=== PATIENT | male | born 1945 | race Caucasian/White ===

== ENCOUNTER 2017-10-31 21:18 | Inpatient (IN) | payer MEDICARE, MEDICAID ==
[~2017-10-31] VITALS: Ht 175.3 cm; Wt 97.1 kg
[2017-10-31 21:10] VITALS: BP 164/75
[2017-10-31] MEDS ORDERED: BLOO-668 IN (23:32)
[2017-10-31] MEDS ORDERED: HYDR-3974 PO (23:32)
[2017-10-31] MEDS ORDERED: ISOS30TA6 PO (23:32)
[2017-10-31] MEDS ORDERED: ASPI-605 PO (23:32)
[2017-10-31] MEDS ORDERED: CHOL200010 PO (23:32)
[2017-10-31] MEDS ORDERED: LEVO100T10 PO (23:32)
[2017-10-31] MEDS ORDERED: INSU100V28 (23:32)
[2017-10-31] MEDS ORDERED: ONDA4TAB11 IVP (23:32)
[2017-10-31] MEDS ORDERED: PIPE3.379 IV (23:32)
[2017-10-31] MEDS ORDERED: ACET-2154 PO (23:32)
[2017-10-31] MEDS ORDERED: ATOR40TA PO (23:32)
[2017-10-31] MEDS ORDERED: NEOM28.37 TP (23:32)
[2017-10-31] MEDS ORDERED: METO50TA16 PO (23:32)
[2017-10-31] MEDS ORDERED: ENOX40DI9 SQ (23:32)
[2017-10-31] MEDS ORDERED: MAGN400O6 PO (23:32)
[2017-10-31] MEDS ORDERED: OXCA300T PO (23:32)
[2017-10-31] MEDS ORDERED: ZOLP10TA6 PO (23:32)
[2017-10-31] MEDS ORDERED: NS 0.9% IV (23:32)
[2017-10-31] MEDS ORDERED: VALS160T2 PO (23:32)
[2017-10-31] MEDS ORDERED: QUET400T PO (23:32)
[2017-10-31] MEDS ORDERED: MAG30ORA2 PO (23:32)
[2017-11-01] MEDS ORDERED: Z GUARD REMEDY PASTE 57 GM TUBE TOP PRN
[2017-11-01] MEDS ORDERED: ACETAMINOPHEN 325 MG TABLET PO PRN (00:15)
[2017-11-01] MEDS ORDERED: HYDROCODONE/APAP 5-325MG TABLET PO PRN (00:15)
[2017-11-01] MEDS ORDERED: MAGNESIUM HYDROXIDE 30 ML LIQUID UDC PO SCH (00:15)
[2017-11-01] MEDS ORDERED: MAG HYDROX/AL HYDROX/SIMETH 30 ML LIQUID UDC PO PRN (00:45)
[2017-11-01] MEDS ORDERED: ZOLPIDEM 5 MG TABLET PO PRN (00:45)
[2017-11-01] MEDS ORDERED: PIPERACILLIN SODIUM/TAZO 3.375 GM VIAL ONE (05:21)
[2017-11-01] MEDS ORDERED: PIPERACILLIN/TAZO/D5W 3.375 GM FROZEN IV SCH (06:00)
[2017-11-01] MEDS: PIPERACILLIN/TAZOBACTAM/D5W 3.375 G in PREMIXED 1 EACH IV SCH ×3 (07:10→22:09)
[2017-11-01] MEDS ORDERED: LEVOTHYROXINE SODIUM 100 MCG TABLET PO SCH (07:30)
[2017-11-01] MEDS ORDERED: INSULIN REGULAR, HUMAN 300 UNIT/3 ML VIAL SQ SCH (07:30)
[2017-11-01] MEDS ORDERED: BLOOD SUGAR DIAGNOSTIC 1 EACH STRIP VI SCH (07:30)
[2017-11-01 08:00] VITALS: BP 166/77
[2017-11-01] MEDS ORDERED: DEXTROSE 50% 50 ML DISP.SYRIN IV PRN (08:00)
[2017-11-01] MEDS: ISOSORBIDE MONONITRATE 30 MG TAB.SR.24H PO SCH (08:33)
[2017-11-01] MEDS: OXCARBAZEPINE 300 MG TABLET PO SCH ×2 (08:33→16:35)
[2017-11-01] MEDS: CHOLECALCIFEROL 1,000 UNIT TABLET PO SCH (08:33)
[2017-11-01] MEDS: VALSARTAN 160 MG TABLET PO SCH (08:33)
[2017-11-01] MEDS: ENOXAPARIN SODIUM 40 MG/0.4 ML DISP.SYRIN SQ SCH (08:34)
[2017-11-01] MEDS: ASPIRIN EC 81 MG TABLET.DR PO SCH (08:34)
[2017-11-01] MEDS: INSULIN REGULAR, HUMAN 300 UNIT/3 ML VIAL SQ PRN ×4 (08:39→20:29)
[2017-11-01] MEDS: NEOMY/BACITRAC/POLYMI OINT 28.35 GM TUBE TP SCH (08:43)
[2017-11-01] MEDS ORDERED: NEOMY/BACITRAC/POLYMI OINT 28.35 GM TUBE TP SCH (09:00)
[2017-11-01] MEDS: BLOOD SUGAR DIAGNOSTIC 1 EACH STRIP VI SCH ×3 (11:35→20:21)
[2017-11-01] MEDS: QUETIAPINE FUMARATE 200 MG TABLET PO SCH (20:14)
[2017-11-01] MEDS: ATORVASTATIN 40 MG TABLET PO SCH (20:14)
[2017-11-01] MEDS ORDERED: QUETIAPINE FUMARATE PO SCH (21:00)
[2017-11-01 22:30] VITALS: BP 125/69
[2017-11-02] MEDS: PIPERACILLIN/TAZOBACTAM/D5W 3.375 G in PREMIXED 1 EACH IV SCH (05:10)
[2017-11-02] MEDS: LEVOTHYROXINE SODIUM 100 MCG TABLET PO SCH (06:04)
[2017-11-02] MEDS: BLOOD SUGAR DIAGNOSTIC 1 EACH STRIP VI SCH ×4 (06:37→20:32)
[2017-11-02] MEDS: NEOMY/BACITRAC/POLYMI OINT 28.35 GM TUBE TP SCH (08:12)
[2017-11-02] MEDS: CHOLECALCIFEROL 1,000 UNIT TABLET PO SCH (08:12)
[2017-11-02] MEDS: OXCARBAZEPINE 300 MG TABLET PO SCH ×2 (08:13→17:10)
[2017-11-02] MEDS: ASPIRIN EC 81 MG TABLET.DR PO SCH (08:14)
[2017-11-02] MEDS: VALSARTAN 160 MG TABLET PO SCH (08:14)
[2017-11-02] MEDS: ISOSORBIDE MONONITRATE 30 MG TAB.SR.24H PO SCH (08:14)
[2017-11-02] MEDS: INSULIN REGULAR, HUMAN 300 UNIT/3 ML VIAL SQ PRN ×4 (08:19→20:31)
[2017-11-02] MEDS: ENOXAPARIN SODIUM 40 MG/0.4 ML DISP.SYRIN SQ SCH (08:20)
[2017-11-02 08:27] LABS: BASOPHILS % (AUTO) 0.5 % (0.0-2.0); EOSINOPHILS # (AUTO) 0.1 K/uL (0.0-0.7); EOSINOPHILS % (AUTO) 1.7 % (0.0-7.0); HEMOGLOBIN 11.2 g/dL (12.5-16.3); LYMPHOCYTES # (AUTO) 1.2 K/uL (20.0-40.0); LYMPHOCYTES % (AUTO) 19.3 % (20.5-51.5); MEAN CORPUSCULAR HEMOGLOBIN 29.2 uug (23.8-33.4); MEAN CORPUSCULAR HGB CONC 35 g/dL (32.5-36.3); MEAN CORPUSCULAR VOLUME 83.2 fL (73.0-96.2); MONOCYTES # (AUTO) 0.6 K/uL (2.0-10.0); MONOCYTES % (AUTO) 9.5 % (0.0-11.0); NEUTROPHILS # (AUTO) 4.2 K/uL (1.8-8.9); PLATELET COUNT (AUTO) 146 K/uL (152-348); RED BLOOD CELL COUNT(AUTO) 3.85 MIL/uL (4.06-5.63); WHITE BLOOD COUNT (AUTO) 6.1 K/uL (3.6-10.2)
[2017-11-02 08:40] VITALS: BP 119/59
[2017-11-02 08:55] LABS: THYROID STIMULATING HORMONE 2.707 mIU/mL (0.358-3.740)
[2017-11-02 09:13] LABS: ALANINE AMINOTRANSFERASE 125 U/L (16-63); ALKALINE PHOSPHATASE 104 U/L (50-136); ASPARTATE AMINOTRANSFERASE 77 U/L (15-37); BILIRUBIN,TOTAL 0.6 mg/dL (0.2-1.0); CARBON DIOXIDE 27 mmol/L (21-32); CHLORIDE 104 mmol/L (98-107); CHOLESTEROL 126 mg/dL (<200); CREATININE 0.8 mg/dL (0.6-1.3); GLUCOSE 188 mg/dL (74-106); HDL CHOLESTEROL 32 mg/dL (40-60); MAGNESIUM 1.8 mg/dL (1.8-2.4); PHOSPHOROUS 3.4 mg/dL (2.5-4.9); POTASSIUM 3.6 mmol/L (3.5-5.1); TOTAL PROTEIN, SERUM 6.2 g/dL (6.4-8.2); TRIGLYCERIDES 84 MG/DL (30-150); UREA NITROGEN, BLOOD 9 mg/dL (7-18); URIC ACID 3.1 mg/dL (3.5-7.2)
[2017-11-02 10:23] LABS: BAND % (MANUAL) 1 % (0-10); LYMPHOCYTES % (MANUAL) 16 % (20-40); METAMYELOCYTES % 6 % (0-1); MONOCYTES % (MANUAL) 10 % (2-10); MYELOCYTES % 2 % (0-0); NEUTROPHILS % (MANUAL) 65 % (42-75)
[2017-11-02 20:26] VITALS: BP 152/67
[2017-11-02] MEDS: ATORVASTATIN 40 MG TABLET PO SCH (20:32)
[2017-11-02] MEDS: QUETIAPINE FUMARATE 200 MG TABLET PO SCH (21:47)
[2017-11-03] MEDS: LEVOTHYROXINE SODIUM 100 MCG TABLET PO SCH (06:13)
[2017-11-03] MEDS: BLOOD SUGAR DIAGNOSTIC 1 EACH STRIP VI SCH ×4 (06:31→21:45)
[2017-11-03] MEDS: INSULIN REGULAR, HUMAN 300 UNIT/3 ML VIAL SQ PRN ×4 (07:55→21:55)
[2017-11-03] MEDS: ISOSORBIDE MONONITRATE 30 MG TAB.SR.24H PO SCH (09:07)
[2017-11-03] MEDS: ASPIRIN EC 81 MG TABLET.DR PO SCH (09:07)
[2017-11-03] MEDS: OXCARBAZEPINE 300 MG TABLET PO SCH ×2 (09:07→16:37)
[2017-11-03] MEDS: VALSARTAN 160 MG TABLET PO SCH (09:07)
[2017-11-03] MEDS: CHOLECALCIFEROL 1,000 UNIT TABLET PO SCH (09:07)
[2017-11-03] MEDS: NEOMY/BACITRAC/POLYMI OINT 28.35 GM TUBE TP SCH (09:08)
[2017-11-03] MEDS: ENOXAPARIN SODIUM 40 MG/0.4 ML DISP.SYRIN SQ SCH (09:10)
[2017-11-03 09:43] VITALS: BP 131/50
[2017-11-03 18:26] VITALS: BP_SYST 122; BP_SYST 126; BP_SYST 140; BP_DIAS 60; BP_DIAS 62; BP_DIAS 68
[2017-11-03 19:48] VITALS: BP 139/70
[2017-11-03] MEDS: ATORVASTATIN 40 MG TABLET PO SCH (21:45)
[2017-11-03] MEDS: QUETIAPINE FUMARATE 200 MG TABLET PO SCH (21:45)
[2017-11-04] MEDS: LEVOTHYROXINE SODIUM 100 MCG TABLET PO SCH (06:32)
[2017-11-04] MEDS: BLOOD SUGAR DIAGNOSTIC 1 EACH STRIP VI SCH ×4 (06:39→20:37)
[2017-11-04] MEDS: INSULIN REGULAR, HUMAN 300 UNIT/3 ML VIAL SQ PRN ×4 (08:01→20:41)
[2017-11-04] MEDS: OXCARBAZEPINE 300 MG TABLET PO SCH ×2 (08:02→17:13)
[2017-11-04] MEDS: ENOXAPARIN SODIUM 40 MG/0.4 ML DISP.SYRIN SQ SCH (08:02)
[2017-11-04] MEDS: ASPIRIN EC 81 MG TABLET.DR PO SCH (08:02)
[2017-11-04] MEDS: CHOLECALCIFEROL 1,000 UNIT TABLET PO SCH (08:02)
[2017-11-04] MEDS: ISOSORBIDE MONONITRATE 30 MG TAB.SR.24H PO SCH (08:03)
[2017-11-04] MEDS: NEOMY/BACITRAC/POLYMI OINT 28.35 GM TUBE TP SCH (08:03)
[2017-11-04] MEDS: VALSARTAN 160 MG TABLET PO SCH (08:04)
[2017-11-04 10:50] VITALS: BP 129/66
[2017-11-04 20:20] VITALS: BP 142/73
[2017-11-04] MEDS: ATORVASTATIN 40 MG TABLET PO SCH (20:33)
[2017-11-04] MEDS: QUETIAPINE FUMARATE 200 MG TABLET PO SCH (21:57)
[2017-11-05] MEDS: LEVOTHYROXINE SODIUM 100 MCG TABLET PO SCH (06:37)
[2017-11-05] MEDS: BLOOD SUGAR DIAGNOSTIC 1 EACH STRIP VI SCH ×4 (06:41→20:45)
[2017-11-05 08:26] VITALS: BP 130/66
[2017-11-05] MEDS: OXCARBAZEPINE 300 MG TABLET PO SCH ×2 (09:23→17:20)
[2017-11-05] MEDS: ASPIRIN EC 81 MG TABLET.DR PO SCH (09:23)
[2017-11-05] MEDS: CHOLECALCIFEROL 1,000 UNIT TABLET PO SCH (09:23)
[2017-11-05] MEDS: VALSARTAN 160 MG TABLET PO SCH (09:23)
[2017-11-05] MEDS: ISOSORBIDE MONONITRATE 30 MG TAB.SR.24H PO SCH (09:24)
[2017-11-05] MEDS: ENOXAPARIN SODIUM 40 MG/0.4 ML DISP.SYRIN SQ SCH (09:25)
[2017-11-05] MEDS: INSULIN REGULAR, HUMAN 300 UNIT/3 ML VIAL SQ PRN ×4 (09:26→20:49)
[2017-11-05] MEDS: NEOMY/BACITRAC/POLYMI OINT 28.35 GM TUBE TP SCH (09:56)
[2017-11-05 19:30] VITALS: BP 142/68
[2017-11-05] MEDS: ATORVASTATIN 40 MG TABLET PO SCH (20:41)
[2017-11-05] MEDS: QUETIAPINE FUMARATE 200 MG TABLET PO SCH (20:42)
[2017-11-06] MEDS: LEVOTHYROXINE SODIUM 100 MCG TABLET PO SCH (06:26)
[2017-11-06] MEDS: BLOOD SUGAR DIAGNOSTIC 1 EACH STRIP VI SCH ×4 (06:29→20:21)
[2017-11-06 08:28] VITALS: BP 120/67
[2017-11-06] MEDS: ENOXAPARIN SODIUM 40 MG/0.4 ML DISP.SYRIN SQ SCH (09:11)
[2017-11-06] MEDS: CHOLECALCIFEROL 1,000 UNIT TABLET PO SCH (09:14)
[2017-11-06] MEDS: VALSARTAN 160 MG TABLET PO SCH (09:14)
[2017-11-06] MEDS: OXCARBAZEPINE 300 MG TABLET PO SCH ×2 (09:14→16:30)
[2017-11-06] MEDS: ASPIRIN EC 81 MG TABLET.DR PO SCH (09:14)
[2017-11-06] MEDS: ISOSORBIDE MONONITRATE 30 MG TAB.SR.24H PO SCH (09:14)
[2017-11-06] MEDS: NEOMY/BACITRAC/POLYMI OINT 28.35 GM TUBE TP SCH (09:15)
[2017-11-06] MEDS: INSULIN REGULAR, HUMAN 300 UNIT/3 ML VIAL SQ PRN ×3 (12:17→20:27)
[2017-11-06] MEDS: MAGNESIUM HYDROXIDE 30 ML LIQUID UDC PO PRN (12:22)
[2017-11-06] MEDS: METFORMIN HCL 500 MG TABLET PO SCH (19:01)
[2017-11-06 19:30] VITALS: BP 143/68
[2017-11-06] MEDS: QUETIAPINE FUMARATE 200 MG TABLET PO SCH (20:21)
[2017-11-06] MEDS: ATORVASTATIN 10 MG TABLET PO SCH (20:21)
[2017-11-07] MEDS: LEVOTHYROXINE SODIUM 100 MCG TABLET PO SCH (06:23)
[2017-11-07] MEDS: BISACODYL 5 MG TABLET.DR PO PRN (06:23)
[2017-11-07] MEDS: BLOOD SUGAR DIAGNOSTIC 1 EACH STRIP VI SCH ×4 (06:31→20:40)
[2017-11-07 07:33] LABS: BASOPHILS % (AUTO) 0.3 % (0.0-2.0); EOSINOPHILS # (AUTO) 0.1 K/uL (0.0-0.7); EOSINOPHILS % (AUTO) 1.2 % (0.0-7.0); HEMATOCRIT 34.9 % (36.7-47.1); HEMOGLOBIN 11.9 g/dL (12.5-16.3); LYMPHOCYTES # (AUTO) 1.4 K/uL (20.0-40.0); LYMPHOCYTES % (AUTO) 20.4 % (20.5-51.5); MEAN CORPUSCULAR HEMOGLOBIN 28.8 uug (23.8-33.4); MEAN CORPUSCULAR HGB CONC 34 g/dL (32.5-36.3); MEAN CORPUSCULAR VOLUME 84.7 fL (73.0-96.2); MONOCYTES # (AUTO) 0.8 K/uL (2.0-10.0); MONOCYTES % (AUTO) 11.6 % (0.0-11.0); NEUTROPHILS # (AUTO) 4.5 K/uL (1.8-8.9); NEUTROPHILS % (AUTO) 66.5 % (38.5-71.5); PLATELET COUNT (AUTO) 147 K/uL (152-348); RED BLOOD CELL COUNT(AUTO) 4.12 MIL/uL (4.06-5.63); WHITE BLOOD COUNT (AUTO) 6.7 K/uL (3.6-10.2)
[2017-11-07 07:58] VITALS: BP 106/60
[2017-11-07 08:02] LABS: ALANINE AMINOTRANSFERASE 95 U/L (16-63); ALKALINE PHOSPHATASE 126 U/L (50-136); ASPARTATE AMINOTRANSFERASE 30 U/L (15-37); BILIRUBIN,TOTAL 0.4 mg/dL (0.2-1.0); CARBON DIOXIDE 27 mmol/L (21-32); CHLORIDE 101 mmol/L (98-107); CREATININE 0.9 mg/dL (0.6-1.3); GLUCOSE 172 mg/dL (74-106); MAGNESIUM 1.7 mg/dL (1.8-2.4); PHOSPHOROUS 3.7 mg/dL (2.5-4.9); POTASSIUM 4.9 mmol/L (3.5-5.1); TOTAL PROTEIN, SERUM 6.5 g/dL (6.4-8.2); UREA NITROGEN, BLOOD 17 mg/dL (7-18)
[2017-11-07] MEDS: ENOXAPARIN SODIUM 40 MG/0.4 ML DISP.SYRIN SQ SCH (08:17)
[2017-11-07] MEDS: INSULIN REGULAR, HUMAN 300 UNIT/3 ML VIAL SQ PRN ×4 (08:19→20:42)
[2017-11-07] MEDS: CHOLECALCIFEROL 1,000 UNIT TABLET PO SCH (08:21)
[2017-11-07] MEDS: ASPIRIN EC 81 MG TABLET.DR PO SCH (08:21)
[2017-11-07] MEDS: METFORMIN HCL 500 MG TABLET PO SCH ×2 (08:21→17:46)
[2017-11-07] MEDS: FUROSEMIDE 20 MG TABLET PO SCH (08:21)
[2017-11-07] MEDS: OXCARBAZEPINE 300 MG TABLET PO SCH ×2 (08:21→17:46)
[2017-11-07] MEDS: VALSARTAN 160 MG TABLET PO SCH (08:22)
[2017-11-07] MEDS: NEOMY/BACITRAC/POLYMI OINT 28.35 GM TUBE TP SCH (08:22)
[2017-11-07] MEDS: ISOSORBIDE MONONITRATE 30 MG TAB.SR.24H PO SCH (08:22)
[2017-11-07] MEDS ORDERED: MAGNESIUM OXIDE 400 MG TABLET PO ONE (15:15)
[2017-11-07] MEDS: MAGNESIUM HYDROXIDE 30 ML LIQUID UDC PO PRN (17:46)
[2017-11-07] MEDS: ATORVASTATIN 10 MG TABLET PO SCH (20:29)
[2017-11-07] MEDS: METOPROLOL TARTRATE 25 MG TABLET PO SCH (20:30)
[2017-11-07] MEDS: QUETIAPINE FUMARATE 200 MG TABLET PO SCH (20:35)
[2017-11-07 21:08] VITALS: BP 130/73
[2017-11-08] MEDS: LEVOTHYROXINE SODIUM 100 MCG TABLET PO SCH (06:13)
[2017-11-08] MEDS: BLOOD SUGAR DIAGNOSTIC 1 EACH STRIP VI SCH ×4 (06:32→20:20)
[2017-11-08] MEDS: CHOLECALCIFEROL 1,000 UNIT TABLET PO SCH (07:55)
[2017-11-08] MEDS: METFORMIN HCL 500 MG TABLET PO SCH ×2 (07:55→16:37)
[2017-11-08] MEDS: VALSARTAN 160 MG TABLET PO SCH (07:55)
[2017-11-08] MEDS: ASPIRIN EC 81 MG TABLET.DR PO SCH (07:55)
[2017-11-08] MEDS: OXCARBAZEPINE 300 MG TABLET PO SCH ×2 (07:55→16:37)
[2017-11-08] MEDS: ISOSORBIDE MONONITRATE 30 MG TAB.SR.24H PO SCH (07:55)
[2017-11-08] MEDS: METOPROLOL TARTRATE 25 MG TABLET PO SCH ×2 (07:56→20:17)
[2017-11-08] MEDS: INSULIN REGULAR, HUMAN 300 UNIT/3 ML VIAL SQ PRN ×4 (07:58→20:24)
[2017-11-08 08:17] VITALS: BP 133/72
[2017-11-08] MEDS: NEOMY/BACITRAC/POLYMI OINT 28.35 GM TUBE TP SCH (08:55)
[2017-11-08] MEDS: BISACODYL 5 MG TABLET.DR PO PRN (16:37)
[2017-11-08 20:10] VITALS: BP 144/63
[2017-11-08] MEDS: DOCUSATE SODIUM 100 MG CAPSULE PO SCH (20:15)
[2017-11-08] MEDS: ATORVASTATIN 10 MG TABLET PO SCH (20:16)
[2017-11-08] MEDS: QUETIAPINE FUMARATE 200 MG TABLET PO SCH (21:56)
[2017-11-09] MEDS: LEVOTHYROXINE SODIUM 100 MCG TABLET PO SCH (06:02)
[2017-11-09] MEDS: BLOOD SUGAR DIAGNOSTIC 1 EACH STRIP VI SCH ×4 (06:03→20:26)
[2017-11-09 07:30] VITALS: BP 114/49
[2017-11-09] MEDS: DOCUSATE SODIUM 100 MG CAPSULE PO SCH ×2 (08:23→20:28)
[2017-11-09] MEDS: METOPROLOL TARTRATE 25 MG TABLET PO SCH ×2 (08:25→20:28)
[2017-11-09] MEDS: ISOSORBIDE MONONITRATE 30 MG TAB.SR.24H PO SCH (08:25)
[2017-11-09] MEDS: ASPIRIN EC 81 MG TABLET.DR PO SCH (08:25)
[2017-11-09] MEDS: OXCARBAZEPINE 300 MG TABLET PO SCH ×2 (08:26→16:35)
[2017-11-09] MEDS: CHOLECALCIFEROL 1,000 UNIT TABLET PO SCH (08:26)
[2017-11-09] MEDS: FUROSEMIDE 20 MG TABLET PO SCH (08:26)
[2017-11-09] MEDS: NEOMY/BACITRAC/POLYMI OINT 28.35 GM TUBE TP SCH (08:26)
[2017-11-09] MEDS: METFORMIN HCL 500 MG TABLET PO SCH ×2 (08:27→16:35)
[2017-11-09] MEDS: VALSARTAN 160 MG TABLET PO SCH (08:29)
[2017-11-09] MEDS: INSULIN REGULAR, HUMAN 300 UNIT/3 ML VIAL SQ PRN ×2 (11:36→20:30)
[2017-11-09 14:03] LABS: *OCCULT BLOOD STOOL NEGATIVE (NEGATIVE)
[2017-11-09] MEDS: QUETIAPINE FUMARATE 200 MG TABLET PO SCH (20:28)
[2017-11-09] MEDS: ATORVASTATIN 10 MG TABLET PO SCH (20:28)
[2017-11-09 20:30] VITALS: BP 140/67
[2017-11-10] MEDS: LEVOTHYROXINE SODIUM 100 MCG TABLET PO SCH (06:37)
[2017-11-10] MEDS: BLOOD SUGAR DIAGNOSTIC 1 EACH STRIP VI SCH ×4 (06:39→20:12)
[2017-11-10 07:30] VITALS: BP 123/76
[2017-11-10] MEDS: INSULIN REGULAR, HUMAN 300 UNIT/3 ML VIAL SQ PRN ×5 (08:00→20:09)
[2017-11-10] MEDS: CHOLECALCIFEROL 1,000 UNIT TABLET PO SCH (08:33)
[2017-11-10] MEDS: OXCARBAZEPINE 300 MG TABLET PO SCH ×2 (08:35→17:10)
[2017-11-10] MEDS: METFORMIN HCL 500 MG TABLET PO SCH ×2 (08:35→17:10)
[2017-11-10] MEDS: METOPROLOL TARTRATE 25 MG TABLET PO SCH ×2 (08:35→20:11)
[2017-11-10] MEDS: DOCUSATE SODIUM 100 MG CAPSULE PO SCH ×2 (08:35→20:11)
[2017-11-10] MEDS: ASPIRIN EC 81 MG TABLET.DR PO SCH (08:36)
[2017-11-10] MEDS: ISOSORBIDE MONONITRATE 30 MG TAB.SR.24H PO SCH (08:36)
[2017-11-10] MEDS: VALSARTAN 160 MG TABLET PO SCH (08:36)
[2017-11-10] MEDS: NEOMY/BACITRAC/POLYMI OINT 28.35 GM TUBE TP SCH (09:52)
[2017-11-10 19:30] VITALS: BP 138/69
[2017-11-10] MEDS: ATORVASTATIN 10 MG TABLET PO SCH (20:11)
[2017-11-10] MEDS: QUETIAPINE FUMARATE 200 MG TABLET PO SCH (20:11)
[2017-11-11] MEDS: LEVOTHYROXINE SODIUM 100 MCG TABLET PO SCH (06:41)
[2017-11-11] MEDS: BLOOD SUGAR DIAGNOSTIC 1 EACH STRIP VI SCH ×4 (06:43→20:34)
[2017-11-11 08:00] VITALS: BP 123/64
[2017-11-11] MEDS: CHOLECALCIFEROL 1,000 UNIT TABLET PO SCH (08:15)
[2017-11-11] MEDS: OXCARBAZEPINE 300 MG TABLET PO SCH ×2 (08:15→17:10)
[2017-11-11] MEDS: VALSARTAN 160 MG TABLET PO SCH (08:15)
[2017-11-11] MEDS: DOCUSATE SODIUM 100 MG CAPSULE PO SCH ×2 (08:15→20:26)
[2017-11-11] MEDS: ASPIRIN EC 81 MG TABLET.DR PO SCH (08:15)
[2017-11-11] MEDS: FUROSEMIDE 20 MG TABLET PO SCH (08:15)
[2017-11-11] MEDS: ISOSORBIDE MONONITRATE 30 MG TAB.SR.24H PO SCH (08:16)
[2017-11-11] MEDS: METOPROLOL TARTRATE 25 MG TABLET PO SCH ×2 (08:17→20:29)
[2017-11-11] MEDS: METFORMIN HCL 500 MG TABLET PO SCH ×2 (08:17→17:10)
[2017-11-11] MEDS: NEOMY/BACITRAC/POLYMI OINT 28.35 GM TUBE TP SCH (08:18)
[2017-11-11 19:30] VITALS: BP 142/65
[2017-11-11] MEDS: ATORVASTATIN 10 MG TABLET PO SCH (20:25)
[2017-11-11] MEDS: QUETIAPINE FUMARATE 200 MG TABLET PO SCH (22:01)
[2017-11-12] MEDS: LEVOTHYROXINE SODIUM 100 MCG TABLET PO SCH (06:09)
[2017-11-12] MEDS: BLOOD SUGAR DIAGNOSTIC 1 EACH STRIP VI SCH ×4 (06:22→20:20)
[2017-11-12] MEDS: INSULIN REGULAR, HUMAN 300 UNIT/3 ML VIAL SQ PRN ×3 (07:55→20:30)
[2017-11-12] MEDS: OXCARBAZEPINE 300 MG TABLET PO SCH ×2 (08:21→17:31)
[2017-11-12] MEDS: ASPIRIN EC 81 MG TABLET.DR PO SCH (08:21)
[2017-11-12] MEDS: CHOLECALCIFEROL 1,000 UNIT TABLET PO SCH (08:21)
[2017-11-12] MEDS: METFORMIN HCL 500 MG TABLET PO SCH ×2 (08:21→17:31)
[2017-11-12] MEDS: DOCUSATE SODIUM 100 MG CAPSULE PO SCH ×2 (08:21→20:21)
[2017-11-12] MEDS: VALSARTAN 160 MG TABLET PO SCH (08:22)
[2017-11-12] MEDS: METOPROLOL TARTRATE 25 MG TABLET PO SCH ×2 (08:22→20:21)
[2017-11-12] MEDS: ISOSORBIDE MONONITRATE 30 MG TAB.SR.24H PO SCH (08:22)
[2017-11-12] MEDS: NEOMY/BACITRAC/POLYMI OINT 28.35 GM TUBE TP SCH (08:23)
[2017-11-12 08:34] VITALS: BP 127/66
[2017-11-12] MEDS: ATORVASTATIN 10 MG TABLET PO SCH (20:21)
[2017-11-12 20:28] VITALS: BP 136/67
[2017-11-12] MEDS: QUETIAPINE FUMARATE 200 MG TABLET PO SCH (21:20)
[2017-11-13] MEDS: LEVOTHYROXINE SODIUM 100 MCG TABLET PO SCH (06:18)
[2017-11-13] MEDS: BLOOD SUGAR DIAGNOSTIC 1 EACH STRIP VI SCH (06:31)
[2017-11-13] MEDS: INSULIN REGULAR, HUMAN 300 UNIT/3 ML VIAL SQ PRN (07:51)
[2017-11-13] MEDS: METFORMIN HCL 500 MG TABLET PO SCH (07:53)
[2017-11-13] MEDS: DOCUSATE SODIUM 100 MG CAPSULE PO SCH (08:07)
[2017-11-13] MEDS: METOPROLOL TARTRATE 25 MG TABLET PO SCH (08:08)
[2017-11-13] MEDS: FUROSEMIDE 20 MG TABLET PO SCH (08:08)
[2017-11-13] MEDS: ASPIRIN EC 81 MG TABLET.DR PO SCH (08:08)
[2017-11-13] MEDS: VALSARTAN 160 MG TABLET PO SCH (08:08)
[2017-11-13] MEDS: ISOSORBIDE MONONITRATE 30 MG TAB.SR.24H PO SCH (08:09)
[2017-11-13] MEDS: CHOLECALCIFEROL 1,000 UNIT TABLET PO SCH (08:09)
[2017-11-13] MEDS: NEOMY/BACITRAC/POLYMI OINT 28.35 GM TUBE TP SCH (08:09)
[2017-11-13] MEDS: OXCARBAZEPINE 300 MG TABLET PO SCH (08:09)
[2017-11-13 08:30] VITALS: BP 134/73
== END 2017-11-13 11:21 | disposition home health service (06) | DRG 70 ==
PROVIDERS: ADMIT Physical Medicine & Rehabilitation Pain Medicine; ATTEND Physical Medicine & Rehabilitation Pain Medicine
DX: G93.41 Metabolic encephalopathy (principal); E43 Unspecified severe protein-calorie malnutrition; I21.4 Non-ST elevation (NSTEMI) myocardial infarction; I50.33 Acute on chronic diastolic (congestive) heart failure; D68.59 Other primary thrombophilia; E11.9 Type 2 diabetes mellitus without complications; F01.50 Vascular dementia, unspecified severity, without behavioral disturbance, psychotic disturbance, mood disturbance, and anxiety; I67.2 Cerebral atherosclerosis; D50.9 Iron deficiency anemia, unspecified; N39.0 Urinary tract infection, site not specified; J98.11 Atelectasis; I11.0 Hypertensive heart disease with heart failure; E03.9 Hypothyroidism, unspecified; I10 Essential (primary) hypertension; R53.1 Weakness; E66.9 Obesity, unspecified; Z68.31 Body mass index [BMI] 31.0-31.9, adult; E78.5 Hyperlipidemia, unspecified; I25.10 Atherosclerotic heart disease of native coronary artery without angina pectoris; I70.0 Atherosclerosis of aorta; K43.9 Ventral hernia without obstruction or gangrene; K59.00 Constipation, unspecified; L60.0 Ingrowing nail; M19.90 Unspecified osteoarthritis, unspecified site; N40.0 Benign prostatic hyperplasia without lower urinary tract symptoms; Z95.1 Presence of aortocoronary bypass graft; Z87.440 Personal history of urinary (tract) infections; L98.9 Disorder of the skin and subcutaneous tissue, unspecified
CPT/HCPCS: 36415; 70030-TC; 71045; 82306; 83735; 84100; 84443; 84550; 85025; 92523; 97110; 97112; 97116; 97165; 97530; 97535; J1650; J1815; J2543; J7060